=== PATIENT | female | born 1980 ===

== ENCOUNTER 2022-12-06 17:31 | Outpatient (REF) | payer MEDICAID, SELFPAY | END 2022-12-06 17:32 | disposition home or self-care (01) | LOC: HO.LNP 17:31 | PROVIDERS: Visit Provider Family Medicine | DX: N76.0 Acute vaginitis (principal); B96.89 Other specified bacterial agents as the cause of diseases classified elsewhere | CPT/HCPCS: 0353U; 87086; 87480; 87510; 87660 ==

== ENCOUNTER 2023-01-27 18:37 | Outpatient (REF) | payer MEDICAID, SELFPAY ==
[2023-01-28 12:08] LABS: BV Int Neg Control Negative (Negative); BV Int Pos Control Positive (Positive)
== END 2023-01-27 18:38 | disposition home or self-care (01) ==
LOC: HO.HHCLNP 18:37
PROVIDERS: Visit Provider Emergency Medicine
DX: N76.0 Acute vaginitis (principal)
CPT/HCPCS: 87480; 87510; 87660

== ENCOUNTER 2024-05-11 17:10 | Outpatient (REF) | payer MEDICAID, SELFPAY ==
[2024-05-11 17:23] LABS: Appearance Urine Cloudy; Color Urine Yellow; Glucose Urine UA Negative (Negative); Leukocyte Esterase Urine Negative (Negative); Nitrite Urine Negative (Negative); PH 5.5 (5.0-9.0); Urine Blood Negative (Negative); Urine Ketones Negative (Negative); Urine Protein Negative (Neg-Trace)
[2024-05-11 17:25] LABS: Bacteria Urine None Seen (None Seen); Hyaline Casts Urine 0-2 /LPF (0-2); RBC Urine 0-2 /HPF (0-2); WBC Urine 0-5 /HPF (0-5)
--- OUTSIDE RECORDS SUMMARY | 2024-05-11 19:31 | XMS_ITS | Encounter Summary ---
Author Organization [employer] Address [address] [place] [address] 7 [place] [address] Care Team Providers Care Sanitation Associate Name Role Phone Hannah Bustos MD Primary Care Provider [phone] Reason for Visit * Reason Onset Date Comments Appointment Request 09/20/2022 Encounter Details Date Type Department Care Team ([facility] Contact Info) Description 09/20/2022 Telephone [facility] [address] [place] [address] Hannah Bustos MD [address] [place] [address] Appointment Request Social History Tobacco Use Types Packs/Day Years Used Date Smoking Tobacco: Never Smokeless Tobacco: Never Comments Unknown Sex and Gender Information Value Date Recorded Sex Assigned at Female 12/31/2021 10:17 AM EDT Legal Sex Female 10:17 AM EDT Gender Identity Female 12/31/2021 10:17 AM EDT Sexual Orientation Straight 12/31/2021 10 :17 AM EDT documented as of this encounter Miscellaneous Notes * Telephone Encounter - Franchesca Howard - 09/20/2022 1:33 PM EDT Tc from pt requesting a PE appointment for program. Glue Sprayer did not see any availability. Please contact pt at [phone] documented in this encounter Plan of Treatment Not on file documented as of this encounter Visit Diagnoses Not on filedocumented in this encounter Care Teams Sanitation Associate Relationship Specialty Start Date End Date Hannah Bustos MD [address] [place] [address] PCP - General Family Medicine 06/29/20 documented as of this encounter
--- OUTSIDE RECORDS SUMMARY | 2024-05-11 19:31 | XMS_ITS | Encounter Summary ---
Author Organization [employer] Address [address] [facility] 7t [place] [address] Care Team Providers Care Screener And Blender Operator Name Role Phone Hannah Bustos MD Primary Care Provider [phone] Encounter Details Date Type Department Care Team ([facility] st Contact Info) Description 05/11/2024 10:20 AM EDT Office Visit [facility] [address] [place] [address] [phone] Briigd Irwin MD [address] [place], [place] [phone] Vaginal discomfort Social History Tobacco Use Types Packs/Day Years Used Date Smoking Tobacco: Never Passive Smoke Exposure: Never Smokeless Tobacco: Never Alcohol Use Standard Drinks/Week Comments Defer 0 (1 standard drink = 0.6 oz pur e alcohol) Housing Stability Answer Date Recorded What is your housing situation today? I have wendi merida 12/30/[address] you li ve. Do you have problems with any of the following? None of the above 12/30/2022 Food Insecurity Answer Date Recorded Within the past 12 months, y ou worried that your food would run out before you got money to buy more: Never True 12/30/2022 Within the past 12 months,th e food you bought just didn't last and you didn't have enough money to get more: Never True Transportation Answer Date Recorded In the past 12 months, has l ack of transportation kept you from medical appts, meetings, work or from getting things needed for daily living? No 12/30/2022 Utilities Answer Date Recorded In the past 12 months, has t he electric, gas, oil or water company threatened to shut off services in your home? No 12/30/2022 Comments Unknown Sex and Gender Information Value Date Recorded Sex Assigned at Female 12/31/2021 10:17 AM EDT Legal Sex Female 10:17 AM EDT Gender Identity Female 12/31/2021 10:17 AM EDT Sexual Orientation Straight 12/31/2021 10 :17 AM EDT documented as of this encounter Last Filed Vital Signs Vital Sign Reading Time Taken Comments Blood Pressure 122/72 05/11/2024 10:27 AM EDT Pulse 98 05/11/2024 10:27 AM EDT Temperature 36.8 ??C (98.2 ??F) 05/11/2024 10:27 AM E DT Respiratory Rate 16 05/11/2024 10:27 AM EDT Oxygen Saturation 99% 05/11/2024 10:27 AM EDT Inhaled Oxygen Concentration - - Weight 77.1 kg (170 lb) 05/11/2024 10:27 AM EDT Height - - Body Mass Index 31.09 01/27/2023 9:04 AM EST documented in this encounter Progress Notes * Brigid Irwin MD - 05/11/2024 10:20 AM EDT Images from the original note were not included. Subjective Amy Szymanski is a 43 y.o. female here for evaluation of irritation between upper left labia minora and majora beginning after intimacy with exposure silicone (not latex). Other associated symptomsinclude: none. Fever has been absent. Symptoms which are not present include: abdominal pain, cloudy urine, dysuria, vaginal discharge, and vaginal itching. UTI history: none. Antibiotic use within past three months: .SJBABXUSE: none The following portions of the chart were reviewed this encounter and updated as appropriate: Review of Systems Pertinent items are noted in HPI Objective BP 122/72 (BP Location: Left arm, Patient Position: Sitting, BP Cuff Size: Adult) Pulse 98 Temp98.2 ??F (36.8 ??C) (Temporal) Resp 16 Wt 170 lb (77.1 kg) SpO2 99% BMI 31.09 kg/m?? Physical Exam Genitourinary: Comments: PT reports irritation at area marked. No redness, discharge or swelling. Diagnoses and all orders for this visit: Vaginal discomfort - POCT urinalysis dipstick manually resulted - Chlamydia/N. Gonorrhoeae RNA, TMA, Urogenitial - Bacterial Vaginosis - Urinalysis, Complete, with Reflex to Culture; Future Problem List Items Addressed This Visit Vaginal discomfort Likely mechanical irritation and not allergy. THERESA prep negative. Will check UA, BV, GC/Chl yeats swab. -trial of silicone based lube, vagisil for irritation and options to modify activity Relevant Orders POCT urinalysis dipstick manually resulted (Completed) Chlamydia/N. Gonorrhoeae RNA, TMA, Urogenitial Bacterial Vaginosis Urinalysis, Complete, with Reflex to Culture Likely acute UTI based on history, exam and urine dip. No clinical evidence of acute abdomen or pyelonephritis. Denies antibiotic use in the past 90 days. Allergies reviewed. -Urinalysis and urine culture sent to the lab -Empiric antibiotics started -Potential adverse effects of the medication reviewed -Discussed strategies to prevent future infections: Increase fluids. Urinate after sex. Avoid bladder irritants. -Report fever, chills, worsening symptoms or abdominal/flank pain -Advised to seek medical attention if no improvement or worsening of symptoms -ER precautions reviewed. documented in this encounter Miscellaneous Notes * Assessment & Plan Note - Brigid Irwin MD - 05/11/2024 11:08 AM EDT Associated Problem(s): Vaginal discomfort Likely mechanical irritation and not allergy. THERESA prep negative. Will check UA, BV, GC/Chl yeats swab. -trial of silicone based lube, vagisil for irritation and options to modify activity documented in this encounter Plan of Treatment Scheduled Orders Name Type Priority Associated Diagnoses Orde r Schedule Chlamydia/N. Gonorrhoeae RNA, TMA, Urogenitial Microbiology Routine Vaginal discomfort Ordered: 05/11/2024 Bacterial Vaginosis Microbiology Routine Vaginal discomfort Ordered: 05/11/2024 documented as of this encounter Procedures Procedure Name Priority Date/Time Associated Diagnosis Comments URINALYSIS, COMPLETE, WITH REFLEX TO CULTURE Routine 05/11/2024 11:01 AM EDT Vaginal discomfort POCT URINALYSIS DIPSTICK Routine 05/11/2024 10:59 AM EDT Vaginal discomfort documented in this encounter Results * Urinalysis, Complete, with Reflex to Culture (05/11/2024 11:01 AM EDT) Color Urine Yellow [facility] Appearance Urine Cloudy [facility] PH 5.5 5.0 - 9.0 [facility] Glucose Urine UA Negative Negative mg/dL [facility] Urine Blood Negative Negative [facility] Specific [place] - Urine 1.020 1.005 - 1.025 [facility] Urine Protein Negative Neg-Trace mg/dL [facility] Urine Ketones Negative Negative mg/dL [facility] Nitrite Urine Negative Negative [facility] Leukocyte Esterase Urine Negative Negative [facility] RBC Urine 0-2 0 - 2 /HPF [facility] Urine WBC 0-5 0 - 5 /HPF [facility] Urine Squamous Epithelial Cell 3-5 0 - 2 /HPF [facility] Urine Bacteria None Seen None Seen [facility] Hyaline Casts, Urine 0-2 0 - 2 /LPF [facility] Urine 05/11/2024 11:0 1 AM EDT 05/11/2024 5:12 PM EDT Narrative [facility] - 05/11/2024 5:28 PM EDT Urine, Clean Catch us Brigid Irwin MD LAB URINE ORDERABLES Final Result [facility] [address] [place] [phone] * POCT urinalysis dipstick manually resulted (05/11/2024 10:59 AM EDT) Color, UA Yellow Clarity, UA Clear Glucose, UA Negative Bilirubin, UA Negative Ketones, UA Negative Spec Grav, UA 1.030 Blood, UA Negative Negative, None Detected pH, UA 6.0 Protein, UA Negative Urobilinogen, UA 0.2 Leukocytes, UA Negative Negative, Rare, Trace Nitrite, UA Negative Negative, None Detected Appearance, UA OK Urine 05/11/2024 10:5 9 AM EDT Brigid Irwin MD POINT OF CARE TEST ENTER/E DIT ORDERABLES Final Result documented in this encounter Visit Diagnoses Diagnosis Vaginal discomfort documented in this encounter Care Teams Screener And Blender Operator Relationship Specialty Start Date End Date Hannah Bustos MD [address] [place] [phone] PCP - General Family Medicine 06/29/20 documented as of this encounter
--- OUTSIDE RECORDS SUMMARY | 2024-05-11 19:31 | XMS_ITS | Clinical Summary ---
Author Organization [employer] Address [address] [facility] 7 [place] [address] Care Team Providers Care Blunger Loader Name Role Phone Hannah Bustos MD Primary Care Provider [phone] Allergies No known active allergies Medications No known medications Active Problems Problem Noted Date Diagnosed Date Vaginal discomfort 05/11/2024 Assessment & Plan (05/11/2024 11:08 AM EDT): Likely mechanical irritation and not allergy. THERESA prep negative. Will check UA, BV, GC/Chl yeats swab. -trial of silicone based lube, vagisil for irritation and options to modify activity Encounters Date Type Department Care Team Description 05/11/2024 10:20 AM EDT Office Visit [facility] [address] [place] [phone] Brigid Irwin MD Vaginal discomfort 04/01/2024 Telephone [facility] [address] [place] [address] [phone] Hannah Bustos MD ER Follow-up 04/01/2024 Orders Only [facility] [address] [place] [phone] Felicitas Thompson RN from Last 3 Months Immunizations Name Administration Dates Next Due Influenza injectable quadriv alent IIV4 with preservative 03/04/2019 Influenza injectable quadrivalent preservative f ree 12/04/2020 Influenza, IIV3, injectable 12/14/2013, 7 Influenza, Split (incl. purified surface antigen ) 12/11/2011 MMR 03/04/2019 Pfizer Covid-19 Vaccine 12+ 11/18/2020, Tdap 03/04/2019 Family History Medical History Relation Name Comments Breast cancer Father's Sister Relation Name Status Comments Father's Sister Social History Tobacco Use Types Packs/Day Years Used Date Smoking Tobacco: Never Passive Smoke Exposure: Never Smokeless Tobacco: Never Tobacco Cessation:Counseling Given: Not Answered Alcohol Use Standard Drinks/Week Comments Defer 0 [...] Orientation Straight 12/31/2021 10 :17 AM EDT Last Filed Vital Signs Vital Sign Reading Time Taken Comments Blood Pressure 122/72 05/11/2024 10:27 AM EDT Pulse 98 05/11/2024 10:27 AM EDT Temperature 36.8 ??C (98.2 ??F) 05/11/2024 10:27 AM E DT Respiratory Rate 16 05/11/2024 10:27 AM EDT Oxygen Saturation 99% 05/11/2024 10:27 AM EDT Inhaled Oxygen Concentration - - Weight 77.1 kg (170 lb) 05/11/2024 10:27 AM EDT Height 157.5 cm (5' 2 ) 01/27/2023 9:04 AM EST Body Mass Index 31.09 01/27/2023 9:04 AM EST Plan of Treatment Health Maintenance Due Date Last Done Comments Depression Screening 1981 Alcohol/Substance Use Screening 1993 Family Planning (PISQ) 1996 Hepatitis B Vaccines (1 of 3 - 19+ 3-dose series) 2000 Mammogram 2021 Pap Smear 08/23/2023 08/22/2020 SDOH Screening 09/26/2023 09/25/2022 COVID-19 Vaccine ( season) 2023 11/18/2020, 10/26/2020 Influenza Vaccine (#1) 2023 , 03/04/2019, 12/14/2013, Additional history exists Tobacco Screening 01/28/2024 01/27/2023 Cervical Cancer Screening 08/22/2025 HPV/Cotest 08/22/2025 08/22/2020 DTaP/Tdap/Td Vaccines (2 - Td or Tdap) 03/04/2029 03/04/2019 Zoster Vaccines (1 of 2) 05/31/2031 RSV Patients and Patients Aged 60 years or older (1 - 1-dose 75+ series) 2056 HIV Screening Completed 03/26/2024, 08/02, 09/27/2021, Additional history exists Hepatitis C Screening Completed 03/26/2024 , 08/20/2022, 09/27/2021 HIB Vaccines Aged Out No longer eligi ble based on patient's age to complete this topic HPV Vaccines Aged Out No longer eligi ble based on patient's age to complete this topic Hepatitis A Vaccines Aged Out No long er eligible based on patient's age to complete this topic IPV Vaccines Aged Out No longer eligi ble based on patient's age to complete this topic Meningococcal Vaccine Aged Out No lyndsay jessy eligible based on patient's age to complete this topic Pneumococcal Vaccine: Pediatrics (0 to 5 Years) and At-Risk Patients (6 to 49) Years) Aged Out No longer eligible based on patient's age to complete this topic RSV under 20 months Aged Out No longe r eligible based on patient's age to complete this topic Rotavirus Vaccines Aged Out No longer eligible based on patient's age to complete this topic Procedures Procedure Name Priority Date/Time Associated Diagnosis Comments URINALYSIS, COMPLETE, WITH REFLEX TO CULTURE Routine 05/11/2024 11:01 AM EDT Vaginal discomfort POCT URINALYSIS DIPSTICK Routine 05/11/2024 10:59 AM EDT Vaginal discomfort HIV ANTIBODY/ANTIGEN ([place] [facility]) Routine 03/26/2024 HEPATITIS C ANTIBODY ([place] [facility]) Routine 03/26/2024 SYPHILIS ABS ([place] [facility]) Routine 03/26/2024 CHLAMYDIA/GONORRHEA THROAT SWAB ([place] [facility]) Routine 03/26/2024 CHLAMYDIA/GONORRHEA VAGINAL SWAB ([place] [facility]) Routine 03/26/2024 HPV MRNA E6/E7 Routine 08/22/2020 9:51 AM EDT THINPREP PAP Routine 08/22/2020 9:51 AM EDT from Last 3 Months or Most Recently Relevant to Health Maintenance Results * Urinalysis, Complete, with Reflex to Culture (05/11/2024 11:01 AM EDT) Color Urine Yellow [facility] Appearance Urine Cloudy [facility] PH 5.5 5.0 - 9.0 [facility] Glucose Urine UA Negative Negative mg/dL [facility] Urine Blood Negative Negative [facility] Specific [place] - Urine 1.020 1.005 - 1.025 [facility] Urine Protein Negative Neg-Trace mg/dL [facility] Urine Ketones Negative Negative mg/dL [facility] Nitrite Urine Negative Negative [facility] Leukocyte Esterase Urine Negative Negative [facility] RBC Urine 0-2 0 - 2 /HPF [facility] Urine WBC 0-5 0 - 5 /HPF [facility] Urine Squamous Epithelial Cell 3-5 0 - 2 /HPF [facility] Urine Bacteria None Seen None Seen [facility] Hyaline Casts, Urine 0-2 0 - 2 /LPF [facility] Urine 05/11/2024 11:0 1 AM EDT 05/11/2024 5:12 PM EDT Narrative [facility] - 05/11/2024 5:28 PM EDT Urine, Clean Catch Brigid Irwin MD LAB URINE ORDERABLES Final Result [facility] [address] [place] [phone] * POCT urinalysis dipstick manually resulted [...] CARE TEST ENTER/E DIT ORDERABLES Final Result * Chlamydia/Gonorrhea Vaginal Swab ([facility]) (03/26/2024) Chlamydia Vaginal Swab Negative Negative, Indeterminate, None Detected, Invalid, Specimen unsatisfactory for evaluation, Weakly Positive Gonorrhea Vaginal Swab Negative Negative, Indeterminate, None Detected, Invalid, Specimen unsatisfactory for evaluation, Weakly Positive Swab Vaginal structure / Unknown 03/26/2024 Radhika Clements MD LAB MICROBIOLOGY - GENERA L ORDERABLES Final Result * Chlamydia/Gonorrhea Throat Swab ([facility]) (03/26/2024) Chlamydia Throat Swab Negative Gonorrhea Throat Swab Negative Swab 03/26/2024 Result [facility] Provider MD LAB MICROBIOLOGY - GENERA L ORDERABLES Final Result * Syphilis Antibodies ([facility]) (03/26/2024) Pathologist [facility] Syphilis Abs Nonreactive Borderline, Nonreactive, Weakly Reactive, Inconclusive, Specimen unsatisfactory for evaluation Blood Venous blood specimen / Unknown 03/26/2024 [facility] Provider MD LAB BLOOD ORDERABLES Val l Result * Hepatitis C Antibody ([place] [facility]) (03/26/2024) Pathologist [facility] Hepatitis C Ab Nonreactive Blood 03/26/2024 Result [facility] Provider MD LAB BLOOD ORDERABLES Val l Result * HIV Ab/Ag ([place] [facility]) (03/26/2024) Pathologist [facility] HIV Ag/Ab Nonreactive Blood 03/26/2024 Result [facility] Provider MD LAB BLOOD ORDERABLES Val l Result * THINPREP PAP (08/22/2020 9:51 AM EDT) Pathologist [facility] Clinical Information: Normal exam [facility] COMMENT SEE COMMENT [facility] Comment: EXPLANATORY NOTE: ? The Pap is a screening test for cervical cancer. It is ?? not a diagnostic test and is subject to false negative ?? and false positive results. It is most reliable when a ?? satisfactory sample, regularly obtained, is submitted ?? with relevant clinical findings and history, and when ?? the Pap result is evaluated along with historic and ?? current clinical information. ?? Collection Systems Administrator : SEE COMMENT [facility] Comment: HJP, CT(ASCP) CT screening location: [address] ??[id number] Interpretation/R esult: Negative for intraepithelial lesion or malignancy. [facility] LMP: 08/21/20 [facility] Prev. BX: NONE GIVEN [facility] Prev. PAP: NONE GIVEN [facility] SOURCE: None given [facility] Statement Of Adequacy: SEE COMMENT [facility] Comment: Satisfactory for evaluation. Endocervical/transformation zone component absent. 08/22/2020 9:51 AM EDT [facility] Rebeca [facility] PATHOLOGY ORDERABLES Final Result Performing Organization Address [facility] Co de Phone Number [facility] [address] * HPV mRNA E6/E7 (08/22/2020 9:51 AM EDT) HPV nRNA E6/E7 Not Detected Not Detected [facility] Comment: Methodology: Knife Sharpener-Mediated Amplification This assay detects E6/E7 viral messenger RNA (mRNA) from 14 high-risk HPV types (16,18,31,33,35,39,45,51,52,56,58,59,66,68). ? The analytical performance characteristics of this assay have been determined by [employer]. The modifications have not been cleared or approved by the FDA. This assay has been validated pursuant to the CLIA regulations and is used for clinical purposes. ?? For additional information, please refer to http://education.stiQRd/faq/OGY990q9 (This link if provided for information/ educational purposes only.) 08/22/2020 9:51 AM EDT Arlette Jose [facility] LAB BLOOD ORDERABLES Val l Result Performing Organization Address [facility] Co de Phone Number [facility] [address] from Last 3 Months or Most Recently Relevant to Health Maintenance Insurance Care Teams Blunger Loader Relationship Specialty Start Date End Date Hannah Bustos MD [address] [place] [phone] PCP - General Family Medicine 06/29/20
--- OUTSIDE RECORDS SUMMARY | 2024-05-11 19:31 | XMS_ITS | Clinical Summary ---
Author Organization [facility] Address [address] [place] [address] Phone Care Team Providers Care Student Counsellor Name Role Phone Physician, Pcp Unknown Primary Care Provider Malou vailable Allergies No known active allergies Encounters Date Type Department Care Team Description 02/16/2024 4:03 PM EST - 02/16/2024 11:14 PM EST Emergency [facility] Emergency [address] [place] [id number] Cysts of both ovaries (Primary Dx) Discharge Disposition: Home or Self Care from Last 3 Months Social History Tobacco Use Types Packs/Day Years Used Date Smoking Tobacco: Never Assessed Comments Unknown Sex and Gender Information Value Date Recorded Sex Assigned at Female 02/16/2024 4:45 PM EST Legal Sex Female 5:43 PM EST Gender Identity Female 02/16/2024 4:45 PM EST Sexual Orientation Straight 02/16/2024 4: 45 PM EST Last Filed Vital Signs Vital Sign Reading Time Taken Comments Blood Pressure 110/68 02/16/2024 7:10 PM EST Pulse 65 02/16/2024 7:10 PM EST Temperature 36.8 ??C (98.2 ??F) 02/16/2024 7:10 PM ES T Respiratory Rate 18 02/16/2024 7:10 PM EST Oxygen Saturation 97% 02/16/2024 7:10 PM EST Inhaled Oxygen Concentration - - Weight 76.2 kg (168 lb) 02/16/2024 2:35 PM EST Height 157.5 cm (5' 2 ) 02/16/2024 2:35 PM EST Body Mass Index 30.73 02/16/2024 2:35 PM EST Plan of Treatment Health Maintenance Due Date Last Done Comments Breast Cancer Screening 1981 Hepatitis B Vaccines (1 of 3 - 19+ 3-dose series) 2000 Cervical Cancer Screening: Pap Smear 2002 COVID-19 Vaccine ( season) 2023 02/27/2021, 11/18/2020, 10/26/2020 Depression Screening 12/11/2023 Social Influencers of Health Screening 12/11/2023 DTaP,Tdap,and Td Vaccines (3 - Td or Tdap) 03/04/2029 03/04/2019, 07/03/2016 MMR Vaccines Aged Out 03/04/2019 No longer eligi ble based on patient's age to complete this topic HIV Screening Completed 08/20/2022 Hepatitis C Screening Completed 08/20/2022 Influenza Vaccine Completed 12/16/2023, , 12/04/2021, Additional history exists HIB Vaccines Aged Out No longer eligi [...] patient's age to complete this topic Meningococcal ACWY Vaccine Aged Out N o longer eligible based on patient's age to complete this topic Meningococcal B Vacine Aged Out No lo nger eligible based on patient's age to complete this topic Pneumococcal Vaccine: Pediatrics (0 to 5 Years) and At-Risk Patients (6 to 64 Years) Aged Out No longer eligible based on patient's age to complete this topic RSV Immunization Patients Under 20 months Aged Out No longer eligible based on patient's age to complete this topic Varicella Vaccines Aged Out No longer eligible based on patient's age to complete this topic Procedures Procedure Name Priority Date/Time Associated Diagnosis Comments US PELVIS TRANSVAGINAL NON OB STAT 02/16/2024 9:[address] ABDOMEN PELVIS W CONTRAST STAT 02/16/2024 7:10 PM EST POC , URINE DIAGNOSTIC STAT 02/16/2024 3:36 PM EST DOMÍNGUEZ URINE CULTURE TUBE STAT 02/16/2024 3:29 PM EST URINALYSIS WITH REFLEX MICROSCOPIC AND CULTURE STAT 02/16/2024 3:29 PM EST URINALYSIS WITH REFLEX MICROSCOPIC AND CULTURE STAT 02/16/2024 3:29 PM EST CBC WITH AUTO DIFFERENTIAL STAT 02/16/2024 3:26 PM EST LIPASE STAT 02/16/2024 3:26 PM EST COMPREHENSIVE METABOLIC PANEL STAT 02/16/2024 3:26 PM EST CBC AND DIFFERENTIAL STAT 02/16/2024 3:26 PM EST from Last 3 Months Results * US Pelvis Transvaginal Non OB (02/16/2024 9:31 PM EST) Anatomical Region Laterality Modality Body Ultrasound 02/16/2024 10:5 1 PM EST Addenda Addendum by Elmo Salvador MD on 02/16/2024 11:06 PM EST ADDENDUM: Addendum: Typographical error in the impression of the report, should state no evidence of ovarian torsion. This document has been electronically signed by: Elmo Salvador MD on 02/16/2024 23:06:22 Impressions 02/16/2024 10:51 PM EST Evidence of ovarian torsion. Bilateral mildly complex ovarian cysts as described. Consider follow-up in 6-12 weeks. Uterine fibroid. This document has been electronically signed by: Elmo Salvador MD on 02/16/2024 22:51:26 Narrative 02/16/2024 10:51 PM EST US pelvis transvaginal Comparison: None Findings: Transvaginal scanning performed. Anteverted uterus is 10 cm length. No endometrial lesion, 6 mm thickness. Possible small hemorrhagic nabothian cyst measuring 0.9 x 0.7 x 0.7 cm. Intramural fibroid measuring 1.6 x 1.4 x 1.5 cm. Right ovary 2.8 x 2.2 x 3.5 cm. Complex right ovarian cyst measuring 1.9 x 1.7 x 1.9 cm, may reflect a hemorrhagic cysts. Left ovary 5.3 x 3.1 x 3.5 cm. Complex left ovarian septated cyst measuring 4.1 x 2.2 x 3.2 cm, avascular, may reflect a hemorrhagic cyst. Limited evaluation given location. Normal color Doppler of both ovaries. No free fluid. Procedure Note Elmo Salvador MD - 02/16/2024 US pelvis transvaginal Comparison: None Findings: Transvaginal scanning performed. Anteverted uterus is 10 cm length. No endometrial lesion, 6 mm thickness. Possible small hemorrhagic nabothian cyst measuring 0.9 x 0.7 x 0.7 cm. Intramural fibroid measuring 1.6 x 1.4 x 1.5 cm. Right ovary 2.8 x 2.2 x 3.5 cm. Complex right ovarian cyst measuring 1.9x 1.7 x 1.9 cm, may reflect a hemorrhagic cysts. Left ovary 5.3 x 3.1 x 3.5 cm. Complex left ovarian septated cyst measuring 4.1 x 2.2 x 3.2 cm, avascular, may reflect a hemorrhagic cyst. Limited evaluation given location. Normal color Doppler of both ovaries. No free fluid. IMPRESSION: Evidence of ovarian torsion. Bilateral mildly complex ovarian cysts as described. Consider follow-upin 6-12 weeks. Uterine fibroid. This document has been electronically signed by: Elmo Salvador MD on 02/16/2024 22:51:26 us Raine VASQUEZ IMG US PROCEDURES Edited R esult - Final * CT Abdomen Pelvis w Contrast (02/16/2024 7:10 PM EST) Anatomical Region Laterality Modality Body Computed Tomogra phy 02/16/2024 7:25 PM EST Impressions 02/16/2024 7:25 PM EST Bilateral adnexal cysts, on the left multi septated measuring 4.8 cm. This may be further evaluated with ultrasound. This document has been electronically signed by: Elmo Salvador MD on 02/16/2024 19:25:20 Narrative 02/16/2024 7:25 PM EST EXAM: CT Abdomen and Pelvis With Intravenous Contrast COMPARISON: No relevant prior studies available. FINDINGS: LUNG BASES: Subpleural pulmonary nodules in the left lower lobe measuring no more than 4 mm. Per Fleischner criteria: Low-risk patients: No routine follow-up required. High-risk patients: Optional CT at 12 months. Atelectasis. ABDOMEN: LIVER: Hepatic steatosis noted. Hepatomegaly. GALLBLADDER AND BILE DUCTS: Unremarkable. No calcified stones. No ductal dilation. PANCREAS: Unremarkable. No mass. No ductal dilation. SPLEEN: Unremarkable. No splenomegaly. ADRENALS: Unremarkable. No mass. KIDNEYS AND URETERS: Parenchymal calcification in the left upper pole kidney. No hydronephrosis. STOMACH AND BOWEL: Scattered colonic diverticulosis without diverticulitis or colitis. No obstruction. PELVIS: APPENDIX: Evidence of prior appendectomy. BLADDER: Bladder is decompressed with mural thickening. REPRODUCTIVE: Bilateral adnexal cysts, on the left multi septated measuring 4.8 cm. ABDOMEN and PELVIS: INTRAPERITONEAL SPACE: Unremarkable. No free air. No significant fluid collection. BONES/JOINTS: Focal spondylosis at L5-S1. No acute fracture. No dislocation. SOFT TISSUES: Unremarkable. VASCULATURE: Unremarkable. No abdominal aortic aneurysm. LYMPH NODES: Prominent inguinal nodes. Procedure Note Elmo Salvador MD - 02/16/2024 EXAM: CT Abdomen and Pelvis With Intravenous Contrast COMPARISON: No relevant prior studies available. FINDINGS: LUNG BASES: Subpleural pulmonary nodules in the left lower lobemeasuring no more than 4 mm. Per Fleischner criteria: Low-risk patients: [place]outine follow-up required. High-risk patients: Optional CT at 12 months. Atelectasis. ABDOMEN: LIVER: Hepatic steatosis noted. Hepatomegaly. GALLBLADDER AND BILE DUCTS: Unremarkable. No calcified stones. No ductal dilation. PANCREAS: Unremarkable. No mass. No ductal dilation. SPLEEN: Unremarkable. No splenomegaly. ADRENALS: Unremarkable. No mass. KIDNEYS AND URETERS: Parenchymal calcification in the left upper pole kidney. No hydronephrosis. STOMACH AND BOWEL: Scattered colonic diverticulosis withoutdiverticulitis or colitis. No obstruction. PELVIS: APPENDIX: Evidence of prior appendectomy. BLADDER: Bladder is decompressed with mural thickening. REPRODUCTIVE: Bilateral adnexal cysts, on the left multi septated measuring 4.8 cm. ABDOMEN and PELVIS: INTRAPERITONEAL SPACE: Unremarkable. No free air. No significant fluid collection. BONES/JOINTS: Focal spondylosis at L5-S1. No acute fracture. No dislocation. SOFT TISSUES: Unremarkable. VASCULATURE: Unremarkable. No abdominal aortic aneurysm. LYMPH NODES: Prominent inguinal nodes. IMPRESSION: Bilateral adnexal cysts, on the left multi septated measuring 4.8 cm.This may be further evaluated with ultrasound. This document has been electronically signed by: Elmo Salvador MD on 02/16/2024 19:25:[address] PROCEDURES Final Resul t * POC , urine manually resulted (02/16/2024 3:36 PM EST) HCG, Ur POC Negative Negative [facility] POC hCG Int QC Pass? Yes Yes [facility] Urine Urine specimen obtained by clean catch procedure / Unknown 02/16/2024 3:36 PM EST Odilia Maddox DO POINT OF CARE TEST ENTER/ EDIT ORDERABLES Final Result [facility] [address] [place] [address], [place] [phone] * Urinalysis with reflex microscopic and culture (02/16/2024 3:29 PM EST) Specific [place] Urine 1.024 1.003 - 1.030 LAB URINALYSIS - AUTOMATED METHOD 02/16/2024 4:02 PM EST [facility] pH, Urine 6.0 5.0 - 8.0 pH LAB URINALYSIS - AUTOMATED METHOD 02/16/2024 4:02 PM EST [facility] Leukocytes, Urine Negative Negative LAB URINALYSIS - AUTOMATED METHOD 02/16/2024 4:02 PM [facility] Nitrite, Urine Negative Negative LAB URINALYSIS - AUTOMATED METHOD 02/16/2024 4:02 PM [facility] Protein, Urine Negative <=Trace mg/dL LAB URINALYSIS - AUTOMATED METHOD 02/16/2024 4:02 PM [facility] Glucose, Urine Negative Negative mg/dL LAB URINALYSIS - AUTOMATED METHOD 02/16/2024 4:02 PM [facility] Ketones, Urine Negative Negative mg/dL LAB URINALYSIS - AUTOMATED METHOD 02/16/2024 4:02 PM [facility] Urobilinogen, Urine 1.0 0.2 - 1.0 mg/dL LAB URINALYSIS - AUTOMATED METHOD 02/16/2024 4:02 PM [facility] Bilirubin, Urine Negative Negative LAB URINALYSIS - AUTOMATED METHOD 02/16/2024 4:02 PM [facility] Blood, Urine Negative Negative LAB URINALYSIS - AUTOMATED METHOD 02/16/2024 4:02 PM [facility] Urine Urine specimen obtained by clean catch procedure / Unknown Non-blood Collection / Unknown 02/16/2024 3:29 PM EST 02/16/2024 3:55 PM EST us Odilia Maddox DO LAB URINE ORDERABLES Val l Result [facility] [address] [place] [address], [place] [phone] * Domínguez urine culture tube (02/16/2024 3:29 PM EST) Extra Tube Hold for add-ons. 02/16/2024 5:01 PM [facility] Comment:Auto resulted. Urine Urine specimen obtained by clean catch procedure / Unknown Non-blood Collection / Unknown 02/16/2024 3:29 PM EST 02/16/2024 3:55 PM EST us Odilia Maddox DO LAB URINE ORDERABLES Val l Result [facility] [address] [place] [address], [place] [phone] * (ABNORMAL) CBC auto differential (02/16/2024 3:26 PM EST) WBC 13.1(H) 4.8 - 10.8 K/mcL LAB HEMETOLOGY METHOD 02/16/2024 4:04 PM EST [facility] RBC 4.40 3.80 - 4.80 M/mcL LAB HEMETOLOGY METHOD 02/16/2024 4:04 PM [facility] Hemoglobin 12.4 11.5 - 16.0 g/dL LAB HEMETOLOGY METHOD 02/16/2024 4:04 PM [facility] Hematocrit 38.0 35.0 - 47.0 % LAB HEMETOLOGY METHOD 02/16/2024 4:04 PM [facility] MCV 87.0 79.0 - 98.0 FL LAB HEMETOLOGY METHOD 02/16/2024 4:04 PM [facility] MCH 28.4 27.0 - 32.0 pcg LAB HEMETOLOGY METHOD 02/16/2024 4:04 PM [facility] MCHC 32.6 32.0 - 37.0 g/dL LAB HEMETOLOGY METHOD 02/16/2024 4:04 PM [facility] RDW 13.1 11.0 - 15.0 % LAB HEMETOLOGY METHOD 02/16/2024 4:04 PM [facility] Platelets 305 130 - 400 K/mcL LAB HEMETOLOGY METHOD 02/16/2024 4:04 PM [facility] MPV 9.1 7.0 - 11.0 FL LAB HEMETOLOGY METHOD 02/16/2024 4:04 PM [facility] NRBC 0.0 <1.0 % LAB HEMETOLOGY METHOD 02/16/2024 4:04 PM [facility] NRBC Absolute 0.00 <0.10 K/mcL LAB HEMETOLOGY METHOD 02/16/2024 4:04 PM [facility] Neutrophils Relative 56.5 % LAB HEMETOLOGY METHOD 02/16/2024 4:04 PM [facility] Lymphocytes Relative 30.7 % LAB HEMETOLOGY METHOD 02/16/2024 4:04 PM [facility] Monocytes Relative 8.0 % LAB HEMETOLOGY METHOD 02/16/2024 4:04 PM [facility] Eosinophils Relative 3.9 % LAB HEMETOLOGY METHOD 02/16/2024 4:04 PM [facility] Basophils Relative 0.5 % LAB HEMETOLOGY METHOD 02/16/2024 4:04 PM [facility] Immature Granulocytes Relative 0.4 % LAB HEMETOLOGY METHOD 02/16/2024 4:04 PM [facility] Neutrophils Absolute 7.41(H) 1.50 - 7.00 K/mcL LAB HEMETOLOGY METHOD 02/16/2024 4:04 PM [facility] Lymphocytes Absolute 4.01 1.00 - 5.00 K/mcL LAB HEMETOLOGY METHOD 02/16/2024 4:04 PM [facility] Monocytes Absolute 1.04(H) 0.20 - 1.00 K/mcL LAB HEMETOLOGY METHOD 02/16/2024 4:04 PM [facility] Eosinophils Absolute 0.51(H) 0.00 - 0.50 K/mcL LAB HEMETOLOGY METHOD 02/16/2024 4:04 PM [facility] Basophils Absolute 0.06 0.00 - 0.20 K/mcL LAB HEMETOLOGY METHOD 02/16/2024 4:04 PM EST [facility] Immature Granulocytes Absolute 0.05(H) 0.00 - 0.03 K/[facility] LAB HEMETOLOGY METHOD 02/16/2024 4:04 PM EST [facility] Blood Venous blood specimen / Unknown Venipuncture / Unknown 02/16/2024 3:26 PM EST 02/16/2024 3:55 PM EST Kandi VASQUEZ LAB BLOOD ORDERABLES Final Resu lt Performing Organization Address City/[facility]/ZIP Co de Phone Number [facility] [address] [place] [address], [place] [phone] * Lipase (02/16/2024 3:26 PM EST) Lipase 27 13 - 75 unit/L LAB CHEMISTRY METHOD 02/16/2024 4:22 PM [facility] Blood Venous blood specimen / Unknown Venipuncture / Unknown 02/16/2024 3:26 PM EST 02/16/2024 3:55 PM EST us Kandi VASQUEZ LAB BLOOD ORDERABLES Final Resu lt Performing Organization Address City/[facility]/ZIP Co de Phone Number [facility] [address] [place] [address], [place] [phone] * Comprehensive metabolic panel (02/16/2024 3:26 PM EST) Sodium 139 133 - 145 mmol/L LAB CHEMISTRY METHOD 02/16/2024 4:22 PM [facility] Potassium 4.3 3.5 - 5.5 mmol/L LAB CHEMISTRY METHOD 02/16/2024 4:22 PM [facility] Chloride 108 96 - 110 mmol/L LAB CHEMISTRY METHOD 02/16/2024 4:22 PM EST [facility] CO2 25 21 - 32 mmol/L LAB CHEMISTRY METHOD 02/16/2024 4:22 PM [facility] Anion Gap 6 3 - 11 LAB CHEMISTRY METHOD 02/16/2024 4:22 PM [facility] Glucose 95 70 - 100 mg/dL LAB CHEMISTRY METHOD 02/16/2024 4:22 PM [facility] BUN 12 5 - 25 mg/dL LAB CHEMISTRY METHOD 02/16/2024 4:22 PM [facility] Creatinine 0.78 0.50 - 1.10 mg/dL LAB CHEMISTRY METHOD 02/16/2024 4:22 PM [facility] eGFR 97 >=60 mL/min/1. 73m2 LAB CHEMISTRY METHOD 02/16/2024 4:22 PM [facility] Comment:Calculation based on the??Chronic Kidney Disease Epidemiology Collaboration (CKD-EPI) equation refit??without adjustment for race. BUN/Creatinine Ratio 15.4 LAB CHEMISTRY METHOD 02/16/2024 4:22 PM [facility] Calcium 9.4 8.5 - 10.5 mg/dL LAB CHEMISTRY METHOD 02/16/2024 4:22 PM [facility] AST (SGOT) 14 10 - 42 unit/L LAB CHEMISTRY METHOD 02/16/2024 4:22 PM [facility] ALT (SGPT) 19 10 - 60 unit/L LAB CHEMISTRY METHOD 02/16/2024 4:22 PM [facility] Alkaline Phosphatase 48 42 - 121 unit/L LAB CHEMISTRY METHOD 02/16/2024 4:22 PM [facility] Total Protein 7.3 6.0 - 8.0 g/dL LAB CHEMISTRY METHOD 02/16/2024 4:22 PM [facility] Albumin 3.9 3.2 - 5.0 g/dL LAB CHEMISTRY METHOD 02/16/2024 4:22 PM EST [facility] Total Bilirubin 1.1 0.0 - 1.4 mg/dL LAB CHEMISTRY METHOD 02/16/2024 4:22 PM EST [facility] ([facility] Blood Venous blood specimen / Unknown Venipuncture / Unknown 02/16/2024 3:26 PM EST 02/16/2024 3:55 PM EST us Kandi VASQUEZ LAB BLOOD ORDERABLES Final Resu lt [facility] ([facility]) [facility] [address] [place] [address], from Last 3 Months Insurance MEDICAID - [place] Care Teams Student Counsellor Relationship Specialty Start Date End Date Physician, Pcp Unknown PCP - General 02/16/24
[2024-05-12 05:13] LABS: CT PCR NOT DETECTED (Not Detect.); NG PCR NOT DETECTED (Not Detect.)
[2024-05-12 09:08] LABS: Bacterial Vaginosis PCR POSITIVE (Negative); Candida Group PCR NOT DETECTED (Not Detect); Candida glab krusei PCR NOT DETECTED (Not Detect); Trichomonas vaginalis PCR NOT DETECTED (Not Detect)
== END 2024-05-11 17:11 | disposition home or self-care (01) ==
LOC: HO.HHCLNP 17:10
PROVIDERS: Visit Provider Family Medicine
DX: N94.9 Unspecified condition associated with female genital organs and menstrual cycle (principal)
CPT/HCPCS: 81001; 81515; 87491; 87591